=== PATIENT | female | born 1980 | race Caucasian/White ===

== ENCOUNTER 2019-03-09 04:10 | Emergency (ER) | payer BC ==
[~2019-03-09] VITALS: Ht 165.1 cm; Wt 78.0 kg
[2019-03-09] MEDS ORDERED: SYNTHROID25 MCG PO (04:29)
[2019-03-09] MEDS ORDERED: KEFLEX500 MG PO (05:05)
== END 2019-03-09 05:16 | disposition home or self-care (01) ==
LOC: ED 04:10
DX: O09.523 Supervision of elderly multigravida, third trimester (principal); O23.43 Unspecified infection of urinary tract in pregnancy, third trimester; O99.283 Endocrine, nutritional and metabolic diseases complicating pregnancy, third trimester; E03.9 Hypothyroidism, unspecified; Z3A.30 30 weeks gestation of pregnancy; Z79.899 Other long term (current) drug therapy
CPT/HCPCS: 81001; 99283

== ENCOUNTER 2019-05-19 13:54 | Inpatient (IN) | payer BC ==
[~2019-05-19] VITALS: Ht 165.1 cm; Wt 82.0 kg
[~2019-05-19 13:54] MED LIST: KEFLEX500 MG PO; SYNTHROID25 MCG PO
[2019-05-19] MEDS ORDERED: PRENATAL VITAM1 EACH PO (22:24)
[2019-05-19] MEDS ORDERED: ASPIR-LOW81 MG PO (22:24)
[2019-05-19] MEDS ORDERED: DHA100 MG PO (22:26)
[2019-05-19] MEDS ORDERED: PROBIOTIC1 EAC1 PO (22:27)
--- NOTE | 2019-05-20 07:22 | PR ---
[facility] [address] [place], [place] [address] Signed Progress Notes IP Datetime Report Generated by RADHA: 05/20/2019 07:22 PROGRESS NOTES: [id number] Impression: Normal progression of labor Procedures: Sterile Vag Exam Plan: Continue present management Informed Consent Obtain: Vaginal Delivery; Induction of Labor; Risks, Benefits and Alternatives Discussed VITAL SIGNS: [id number] Vital Signs: Reviewed; Within Normal Limits EXAM: [id number] Dilatation: 3.0 Effacement: 70 Station: -2 Uterine Contractions: q 1 to 3 min MEMBRANES: [id number] Membrane Status: Intact Comments: Getting comfortable after epidural. Will continue. Fetus A: [id number] FHR Baseline: 130 Variability: Moderate 6-25bpm Accelerations: 15X15 Decelerations: None FHR Category: Category I Presentation: Vertex Comments on Fetus A: No evidence of metabolic acidosis Fetus B: [id number] Signing Physician: Britta José MD Copies: ~ *Electronically Signed* 05/20/19 0722 BRITTA JOSÉ MD PATIENT NAME: KOWALSKICARMINE PROGRESS NOTE DATE OF : 76 PHYSICIAN: BRITTA JOSÉ MD RPT #: [id number] REPORT IS CONFIDENTIAL AND NOT TO BE RELEASED WITHOUT AUTHORIZATION
--- NOTE | 2019-05-20 11:15 | PR ---
[facility] [address] [facility] [place] [facility] [place], [place] [address] Signed Progress Notes IP Datetime Report Generated by RADHA: 05/20/2019 11:15 PROGRESS NOTES: [id number] Impression: Slow Progression of Labor Procedures: Intrauterine Pressure Catheter; Scalp Electrode Plan: Continue present management Informed Consent Obtain: Vaginal Delivery; Induction of Labor; Risks, Benefits and Alternatives Discussed VITAL SIGNS: [id number] Vital Signs: Reviewed; Within Normal Limits EXAM: [id number] Dilatation: 3.0 Effacement: 90 Station: -2 Uterine Contractions: difficult to picker and sorter load and unload with ext monitor MEMBRANES: [id number] Membrane Status: Intact Comments: Comfortable still with epidural. Will place IUPC and FSE. Fetus A: [id number] FHR Baseline: 140 Variability: Moderate 6-25bpm Accelerations: 15X15 Decelerations: None FHR Category: Category I Presentation: Vertex Comments on Fetus A: No evidence of metabolic acidosis Fetus B: [id number] Signing Physician: Britta José MD Copies: ~ *Electronically Signed* 05/20/19 1115 BRITTA JOSÉ MD PATIENT NAME: CARMINE KOWALSKI PROGRESS NOTE DATE OF : 76 PHYSICIAN: BRITTA JOSÉ MD RPT #: [id number] REPORT IS CONFIDENTIAL AND NOT TO BE RELEASED WITHOUT AUTHORIZATION
--- NOTE | 2019-05-20 13:03 | PR ---
[facility] [address] [facility] [place], [place] [address] Signed Progress Notes IP Datetime Report Generated by RADHA: 05/20/2019 13:03 PROGRESS NOTES: [id number] Impression: Slow Progression of Labor Procedures: Sterile Vag Exam Plan: Continue present management Informed Consent Obtain: Vaginal Delivery; Induction of Labor; Risks, Benefits and Alternatives Discussed VITAL SIGNS: [id number] Vital Signs: Reviewed; Within Normal Limits EXAM: [id number] Dilatation: 4.0 Effacement: 90 Station: -2 Uterine Contractions: q 2 to 4 min MEMBRANES: [id number] Membrane Status: Intact Comments: Progressing though slow. Contraction pattern is adequate and status very reassuring. Will continue. Fetus A: [id number] FHR Baseline: 120 Variability: Moderate 6-25bpm Accelerations: 15X15 Decelerations: None FHR Category: Category I Presentation: Vertex Comments on Fetus A: No evidence of metabolic acidosis. Fetus B: [id number] Signing Physician: Britta José MD Copies: ~ *Electronically Signed* 05/20/19 1303 BRITTA JOSÉ MD PATIENT NAME: CARMINE KOWALSKI PROGRESS NOTE DATE OF : 76 PHYSICIAN: BRITTA JOSÉ MD RPT #: [id number] REPORT IS CONFIDENTIAL AND NOT TO BE RELEASED WITHOUT AUTHORIZATION
--- NOTE | 2019-05-20 15:26 | PR ---
[facility] [address] [place], [place] [address] Signed Progress Notes IP Datetime Report Generated by RADHA: 05/20/2019 15:26 PROGRESS NOTES: [id number] Impression: Slow Progression of Labor Procedures: Intrauterine Pressure Catheter; Sterile Vag Exam Plan: Continue present management Informed Consent Obtain: Vaginal Delivery; Induction of Labor; Risks, Benefits and Alternatives Discussed VITAL SIGNS: [id number] Vital Signs: Reviewed; Within Normal Limits EXAM: [id number] Dilatation: 4.5 Effacement: 90 Station: -2 Uterine Contractions: q 1 to 4 min MEMBRANES: [id number] Membrane Status: Intact Comments: Slow progress. Pit has been off and decreased as there was an elevated resting tone by IUPC though uterus felt soft. IUP replaced and tone much lower. Will increase pit as needed for adequate contractions. Fetus A: [id number] FHR Baseline: 130 Variability: Moderate 6-25bpm Accelerations: 15X15 Decelerations: None FHR Category: Category I Presentation: Vertex Comments on Fetus A: No evidence of metabolic acidosis Fetus B: [id number] Signing Physician: Britta José MD Copies: ~ *Electronically Signed* 05/20/19 1526 BRITTA JOSÉ MD PATIENT NAME: CARMINE KOWALSKI PROGRESS NOTE DATE OF : 76 PHYSICIAN: BRITTA JOSÉ MD RPT #: [id number] REPORT IS CONFIDENTIAL AND NOT TO BE RELEASED WITHOUT AUTHORIZATION
--- NOTE | 2019-05-20 17:05 | PR ---
[facility] [address] [facility] [place], [place] [address] Signed Progress Notes IP Datetime Report Generated by CPRosa: 05/20/2019 17:04 PROGRESS NOTES: [id number] Impression: Slow Progression of Labor Procedures: Sterile Vag Exam Plan: Continue present management Informed Consent Obtain: Vaginal Delivery; Induction of Labor; Risks, Benefits and Alternatives Discussed VITAL SIGNS: [id number] Vital Signs: Reviewed; Within Normal Limits EXAM: [id number] Dilatation: 5.0 Effacement: 90 Station: -2 Uterine Contractions: q 4 to 5 min MEMBRANES: [id number] Membrane Status: Intact Comments: Progressing slowly. Some swelling of anterior cervix. Will change to side lying and move from high Fowlers. Fetus A: [id number] FHR Baseline: 130 Variability: Moderate 6-25bpm Accelerations: 10X10 Decelerations: Early FHR Category: Category I Presentation: Vertex Comments on Fetus A: no evidence of metabolic acidosis Fetus B: [id number] Signing Physician: Britta José MD Copies: ~ *Electronically Signed* 05/20/19 1704 BRITTA JOSÉ MD PATIENT NAME: CARMINE KOWALSKI PROGRESS NOTE DATE OF : 76 PHYSICIAN: BRITTA JOSÉ MD RPT #: [id number] REPORT IS CONFIDENTIAL AND NOT TO BE RELEASED WITHOUT AUTHORIZATION
--- NOTE | 2019-05-21 13:04 | PR ---
[facility] [address] [facility] [place], [place] [address] Signed PP Progress Notes Datetime Report Generated by CPRosa: 05/21/2019 13:04 SUBJECTIVE: [id number] Pain: Within normal limits Vital Signs: H9090345 Vital Signs: Reviewed; Within Normal Limits EXAM: [id number] Cardiovascular: Not Done Respiratory: Not Done Abdomen/Uterus: Abnormal Lochia: Normal Vulva/Perineum: Not Done Breasts: Not Done CVA Tenderness: Not Done Extremities: Normal Incision: Not Applicable Progress: Normal Exam Comments: Fundus firm, NT @ U-1 H/H 11.9/35.5, WBC 20.9, plat 198k IMPRESSION/PLAN/PROCEDURES: [id number] Impression: Normal progression Plan: Continue present management Procedures: None Progress Notes: Doing well. Will continue present care. Signing Physician: Britta José MD Copies: ~ *Electronically Signed* 05/21/19 1304 BRITTA JOSÉ MD PATIENT NAME: CARMINE KOWALSKI RICHMOND GANN PROGRESS NOTE DATE OF : 76 PHYSICIAN: BRITTA JOSÉ MD RPT #: [id number] REPORT IS CONFIDENTIAL AND NOT TO BE RELEASED WITHOUT AUTHORIZATION
--- NOTE | 2019-05-22 10:10 | PR ---
[facility] [address] [facility] [place], [place] [address] Signed PP Progress Notes Datetime Report Generated by CPN: 05/22/2019 10:10 SUBJECTIVE: [id number] Pain: Within normal limits Vital Signs: [id number] Vital Signs: Reviewed; Within Normal Limits EXAM: H0759316 Cardiovascular: Not Done Respiratory: Not Done Abdomen/Uterus: Abnormal Lochia: Normal Vulva/Perineum: Not Done Breasts: Not Done CVA Tenderness: Not Done Extremities: Normal Incision: Not Applicable Progress: Normal Exam Comments: Fundus firm, NT @ U-1. IMPRESSION/PLAN/PROCEDURES: [id number] Impression: Normal progression Plan: Discharge Procedures: None Progress Notes: Doing well overall. She is ready for D/C today. Signing Physician: Britta José MD Copies: ~ *Electronically Signed* 05/22/19 1010 BRITTA JOSÉ MD PATIENT NAME: CARMINE KOWALSKI PROGRESS NOTE DATE OF : 76 PHYSICIAN: BRITTA JOSÉ MD RPT #: [id number] REPORT IS CONFIDENTIAL AND NOT TO BE RELEASED WITHOUT AUTHORIZATION
== END 2019-05-22 15:20 | disposition home or self-care (01) | DRG 768 ==
LOC: FBC 13:54
PROVIDERS: ADMIT Obstetrics & Gynecology
PROC: 10E0XZZ Delivery of Products of Conception, External Approach (ICD-10-PCS; principal; 2019-05-20)
PROC: 0UQG0ZZ Repair Vagina, Open Approach (ICD-10-PCS; 2019-05-20)
PROC: 3E0P7VZ Introduction of Hormone into Female Reproductive, Via Natural or Artificial Opening (ICD-10-PCS; 2019-05-20)
PROC: 10H07YZ Insertion of Other Device into Products of Conception, Via Natural or Artificial Opening (ICD-10-PCS; 2019-05-20)
PROC: 00HU33Z Insertion of Infusion Device into Spinal Canal, Percutaneous Approach (ICD-10-PCS; 2019-05-20)
PROC: 3E0R3BZ Introduction of Anesthetic Agent into Spinal Canal, Percutaneous Approach (ICD-10-PCS; 2019-05-20)
DX: O69.1XX0 Labor and delivery complicated by cord around neck, with compression, not applicable or unspecified (principal); Z37.0 Single live birth; O99.42 Diseases of the circulatory system complicating childbirth; O71.4 Obstetric high vaginal laceration alone; I73.00 Raynaud's syndrome without gangrene; O76 Abnormality in fetal heart rate and rhythm complicating labor and delivery; O75.89 Other specified complications of labor and delivery; O99.284 Endocrine, nutritional and metabolic diseases complicating childbirth; E03.9 Hypothyroidism, unspecified; Z3A.40 40 weeks gestation of pregnancy; Z79.82 Long term (current) use of aspirin; Z79.899 Other long term (current) drug therapy
CPT/HCPCS: 01960; 36415; 85027; J2210; J2590; J7120

== ENCOUNTER 2021-09-16 15:02 | Emergency (ER) | payer OTHER, BC ==
[~2021-09-16] VITALS: Ht 165.1 cm; Wt 77.1 kg
[~2021-09-16 15:02] MED LIST changes: +ASPIR-LOW81 MG PO; +DHA100 MG PO; +PRENATAL VITAM1 EACH PO; +PROBIOTIC1 EAC1 PO
[2021-09-16] MEDS ORDERED: DELESTROGE10 MG/1 ML IM (15:30)
[2021-09-16] MEDS ORDERED: ENDOMETRIN100 MG VAGINAL (15:31)
[2021-09-16] MEDS ORDERED: PROGESTERO50 MG/1 M1 IM (15:31)
== END 2021-09-16 15:56 | disposition home or self-care (01) ==
LOC: ED 15:02
DX: Z77.21 Contact with and (suspected) exposure to potentially hazardous body fluids (principal); Y99.0 Civilian activity done for income or pay; Z79.899 Other long term (current) drug therapy
CPT/HCPCS: 84460; 99283

== ENCOUNTER 2021-12-19 11:15 | Emergency (ER) | payer BC ==
[~2021-12-19] VITALS: Ht 165.1 cm; Wt 77.1 kg
[~2021-12-19 11:15] MED LIST changes: +DELESTROGE10 MG/1 ML IM; +ENDOMETRIN100 MG VAGINAL; +PROGESTERO50 MG/1 M1 IM
== END 2021-12-19 13:52 | disposition home or self-care (01) ==
LOC: ED 11:15
DX: O98.512 Other viral diseases complicating pregnancy, second trimester (principal); U07.1 COVID-19; Z3A.22 22 weeks gestation of pregnancy; Z79.899 Other long term (current) drug therapy; Z23 Encounter for immunization
CPT/HCPCS: 99283-25; M0247

== ENCOUNTER 2022-04-19 06:00 | Inpatient (IN) | payer BC ==
[~2022-04-19] VITALS: Ht 165.1 cm; Wt 80.7 kg
--- NOTE | 2022-04-19 12:48 | PR ---
[facility] [address] [place], [place] [address] Signed Progress Notes IP Datetime Report Generated by RADHA: 04/19/2022 12:48 PROGRESS NOTES: [id number] Impression: Normal Progression of Labor; Reassuring Heart Rate Procedures: Sterile Vag Exam Plan: Continue Present Management VITAL SIGNS: [id number] Vital Signs: Reviewed; Within Normal Limits EXAM: V1140431 Dilatation: 1.0 Effacement: 50 Station: -3 Contractions: occ MEMBRANES: [id number] Comments: Still very comfortable. VTX is palpable now but still high. Will repeat Cytotec with probable AROM at next check. FETUS A: [id number] FHR Baseline: 125 Variability: Moderate 6-25bpm Accelerations: 15X15 Decelerations: None FHR Category: Category I Presentation: Vertex Comments on Fetus A: No evidence of metabolic acidosis FETUS B: [id number] Signing Physician: Britta Joés MD Copies: ~ *Electronically Signed* 04/19/22 1248 BRITTA JOSÉ MD PATIENT NAME: DEXCARMINE GANN PROGRESS NOTE DATE OF : 76 PHYSICIAN: BRITTA JOSÉ MD RPT #: [id number] REPORT IS CONFIDENTIAL AND NOT TO BE RELEASED WITHOUT AUTHORIZATION
--- NOTE | 2022-04-19 17:03 | PR ---
[facility] [address] [place], [place] [address] Signed Progress Notes IP Datetime Report Generated by RADHA: 04/19/2022 17:03 PROGRESS NOTES: [id number] Impression: Normal Progression of Labor; Reassuring Heart Rate Procedures: Artificial ROM; Sterile Vag Exam Plan: Continue Present Management VITAL SIGNS: R8456465 Vital Signs: Reviewed; Within Normal Limits EXAM: [id number] Dilatation: 1.0 Effacement: 50 Station: -3 Contractions: occ MEMBRANES: [id number] Comments: Comfortable with epidural. VTX confirmed by U/S. AROM done with head settling nicely against the cervix. Will continue. FETUS A: [id number] FHR Baseline: 125 Variability: Moderate 6-25bpm Accelerations: 15X15 Decelerations: None FHR Category: Category I Presentation: Vertex Comments on Fetus A: No evidence of metabolic acidosis FETUS B: [id number] Signing Physician: Britta José MD Copies: ~ *Electronically Signed* 04/19/221702 BRITTA JOSÉ MD PATIENT NAME: KOWALSKICARMINE PROGRESS NOTE DATE OF : 76 PHYSICIAN: BRITTA JOSÉ MD RPT #: [id number] REPORT IS CONFIDENTIAL AND NOT TO BE RELEASED WITHOUT AUTHORIZATION
--- NOTE | 2022-04-19 20:26 | PR ---
[facility] [address] [facility] [place], [place] [address] Signed Progress Notes IP Datetime Report Generated by CPRosa: 04/19/2022 20:26 PROGRESS NOTES: [id number] Impression: Normal Progression of Labor Procedures: Sterile Vag Exam Plan: Continue Present Management VITAL SIGNS: [id number] Vital Signs: Reviewed; Within Normal Limits EXAM: T1841574 Dilatation: 6.0 Effacement: 90 Station: 0 Contractions: occ MEMBRANES: O7889560 ROM Note: Dr José at bedside. AROM, Comments: Comfortable. Progressing well. Will continue. FETUS A: H2468325 FHR Baseline: 125 Variability: Moderate 6-25bpm Accelerations: 15X15 Decelerations: None FHR Category: Category I Presentation: Vertex Comments on Fetus A: No evidence of metabolic acidosis FETUS B: [id number] Signing Physician: Britta José MD Copies: ~ *Electronically Signed* 04/19/222025 BRITTA JOSÉ MD PATIENT NAME: CARMINE KOWALSKI RICHMON[place] GANN PROGRESS NOTE DATE OF : 76 PHYSICIAN: BRITTA JOSÉ MD RPT #: [id number] REPORT IS CONFIDENTIAL AND NOT TO BE RELEASED WITHOUT AUTHORIZATION
--- NOTE | 2022-04-20 07:51 | PR ---
[facility] [address] [facility] [place], [place] [address] Signed PP Progress Notes Datetime Report Generated by CPN: 04/20/2022 07:51 SUBJECTIVE: [id number] Pain: Within Normal Limits Nausea/Vomiting: Denies Vital Signs: O0845685 Vital Signs: Reviewed; Within Normal Limits Cardiovascular: Not Done Respiratory: Not Done Abdomen/Uterus: Abnormal Lochia: Normal Vulva/Perineum: Not Done Breasts: Not Done CVA Tenderness: Not Done Extremities: Normal Incision: Not Applicable Progress: Normal Exam Comments: Fundus firm, NT @ U-2. H/H 12.8/38.6, WBC 11.6, plat 179k IMPRESSION/PLAN/PROCEDURES: [id number] Impression: Normal Progression Plan: Continue Present Management Progress Notes: Doing well. Will prob D/C home in the am. Signing Physician: Britta José MD Copies: ~ *Electronically Signed* 04/20/22 0751 BRITTA JOSÉ MD PATIENT NAME: CARMINE KOWALSKI PROGRESS NOTE DATE OF : 76 PHYSICIAN: BRITTA JOSÉ MD RPT #: [id number] REPORT IS CONFIDENTIAL AND NOT TO BE RELEASED WITHOUT AUTHORIZATION
--- NOTE | 2022-04-21 12:18 | PR ---
[facility] [address] [facility] [place], [place] [address] Signed PP Progress Notes Datetime Report Generated by CPN: 04/21/2022 12:18 SUBJECTIVE: [id number] Pain: Within Normal Limits Nausea/Vomiting: Denies Vital Signs: [id number] Vital Signs: Reviewed; Within Normal Limits Cardiovascular: Not Done Respiratory: Not Done Abdomen/Uterus: Abnormal Lochia: Normal Vulva/Perineum: Not Done Breasts: Not Done CVA Tenderness: Not Done Extremities: Normal Incision: Not Applicable Progress: Normal Exam Comments: Fundus firm, NT @ U-2. IMPRESSION/PLAN/PROCEDURES: [id number] Impression: Normal Progression Plan: Discharge Procedures: None Progress Notes: Doing well. She is ready for D/C. Signing Physician: Britta José MD Copies: ~ *Electronically Signed* 04/21/22 1218 BRITTA JOSÉ MD PATIENT NAME: CARMINE KOWALSKI PROGRESS NOTE DATE OF : 76 PHYSICIAN: BRITTA JOSÉ MD RPT #: [id number] REPORT IS CONFIDENTIAL AND NOT TO BE RELEASED WITHOUT AUTHORIZATION
== END 2022-04-21 13:53 | disposition home or self-care (01) | DRG 807 ==
LOC: FBC 06:00
PROVIDERS: ADMIT Obstetrics & Gynecology; ATTEND Obstetrics & Gynecology
PROC: 10E0XZZ Delivery of Products of Conception, External Approach (ICD-10-PCS; principal; 2022-04-19)
PROC: 10907ZC Drainage of Amniotic Fluid, Therapeutic from Products of Conception, Via Natural or Artificial Opening (ICD-10-PCS; 2022-04-19)
PROC: 3E033VJ Introduction of Other Hormone into Peripheral Vein, Percutaneous Approach (ICD-10-PCS; 2022-04-19)
PROC: 3E0P7VZ Introduction of Hormone into Female Reproductive, Via Natural or Artificial Opening (ICD-10-PCS; 2022-04-19)
PROC: 00HU33Z Insertion of Infusion Device into Spinal Canal, Percutaneous Approach (ICD-10-PCS; 2022-04-19)
PROC: 3E0R3BZ Introduction of Anesthetic Agent into Spinal Canal, Percutaneous Approach (ICD-10-PCS; 2022-04-19)
DX: O24.429 Gestational diabetes mellitus in childbirth, unspecified control (principal); Z37.0 Single live birth; Z20.822 Contact with and (suspected) exposure to COVID-19; Z3A.39 39 weeks gestation of pregnancy; Z67.10 Type A blood, Rh positive
CPT/HCPCS: 01960; 36415; 85027; 86850; 86900; 86901; 87502; A9270; J2590; J2795; U0003